=== PATIENT | female | born 1995 | race Caucasian/White ===

== ENCOUNTER 2022-07-12 08:14 | Emergency (ER) | payer OTHER, SELFPAY ==
[2022-07-12 08:19] VITALS: BP 122/64; PULSE 77; RESP 18; TEMP 37; O2SAT 100
--- NOTE | 2022-07-12 08:46 | ED.URI ---
HPI - URI/Sore Throat General Chief Complaint: Upper Respiratory Infection Stated Complaint: Eye Problem/Sore Throat Time Seen by Provider: 07/12/22 08:40 Source: patient, RN notes reviewed and old records reviewed Mode of arrival: ambulatory Limitations: no limitations History of Present Illness HPI Narrative: 26 year old female who presents to [facility] with complaints of 4 day history of sore throat, nasal congestion and drainage, and sinus pressure. Patient awoke this morning at 3:00 a.m. with itchy and watery bilateral eyes with crusting and yellowish drainage, has use warm compresses to her eyes. Patient reports that her eyes have excessive watering and her vision is a little blurry, denies any sharp pain to her eyes. Patient reports no ear pain, denies fevers chills or sweats or any body aches. Visual acuity left eye 20/40, right 20/25 without corrective lenses. MD elicited complaint: sore throat, rhinorrhea, nasal congestion and other (Eyes itchy and draining) Pertinent past history: seasonal allergies Onset (ago): day(s) (4 days sore throat since 3:00 a.m. on her eye complaints) Pain scale (0-10): 7 Exacerbating factors: swallowing Treatments prior to arrival: other (Claritin and warm compresses to eyes) Related Data Home Medications Medication Instructions Recorded Confirmed cetirizine 10 mg tablet 10 mg PO DAILY 05/31/22 07/12/22 Allergies Allergy/AdvReac Type Severity Reaction Status Date / Time No Known Allergies Allergy Verified 07/12/22 08:41 Review of Systems Review of Systems: CONSTITUTIONAL: Denies malaise, chills, sweats, or fever. EYES: Reports some visual blurring increased watering from both eyes conjunctiva redness and sclera redness with eyes puffy and yellowish green discharge, ENT: Reports rhinorrhea, congestion, no acute sinus pain,no otalgia, positive for sore throat. CARDIOVASCULAR: Denies chest pain, palpitations, or edema. RESPIRATORY: Reports occasional cough.? Denies dyspnea. GASTROINTESTINAL: Denies abdominal pain, nausea, vomiting, diarrhea SKIN: Denies rash or itching. MUSCULOSKELETAL: Denies myalgia. NEUROLOGIC: Denies headache. All systems reviewed & are unremarkable except as noted in HPI and below PMFSH Past Medical History Medical History (Updated 07/13/22 @ 07:29 by Brianda Drew NP) Allergies Surgical History Surgical History (Updated 07/13/22 @ 07:24 by Brianda Drew NP) [place] teeth extracted Family History Family History (Updated 05/31/22 @ 15:02 by ELDER Watson) Mother Asthma Depression Sibling Asthma Grandparent Bladder cancer Diabetes mellitus Depression Heart disease Hypertension Social History Social History (Updated 05/31/22 @ 15:01 by ELDER Watson) Smoking status: Never smoker Alcohol intake: never Substance use: never Lack of Transportation: No Lack of Food: Never True Current Housing: I Have Housing Concerned About Future Housing: No Difficulty Paying Gas/Electric Bills: No Difficulty Paying for Meds: No Currently Unemployed: No Education: Master's Degree or Higher Difficulty w/ Childcare or Family Care: No Living arrangements: with family Occupation/Education: occupation Gender identity (if verbalized by the patient): Female Comments At time of signature, agree with nursing past medical, surgical, social and family history. There is no relevant family history pertinent to the presenting complaint Exam Narrative: GENERAL: Well-appearing, well-nourished, and in no acute distress. HEAD: Normocephalic EYES: PERRLA, conjunctivae clear ENT: Nares clear, turbinates edematous and erythematous, clear discharge. Mucous membranes moist. TM pearly borrego with dull light reflex bilaterally; no tragal tenderness. Oropharynx erythematous without lesions. Tonsils red not enlarged and without exudate, no drooling, no hoarseness, no trismus, uvula midline.
== END 2022-07-12 09:10 | disposition home or self-care (01) ==
PROVIDERS: Emergency Provider Registered Nurse; PCP Family Medicine
DX: H10.9 Unspecified conjunctivitis (principal); J02.9 Acute pharyngitis, unspecified
CPT/HCPCS: 87081; 87880; 99213; G0463